=== PATIENT | female | born 1940 | race Caucasian/White ===

== ENCOUNTER 2021-06-29 06:09 | Emergency (ER) | payer OTHER ==
[~2021-06-29] VITALS: Ht 154.9 cm; Wt 64.4 kg
[~2021-06-29 06:09] MED LIST: ATENPOW10 PO; LISIPOW PO; NOVASTATIN PO; ZANTAC PO
[2021-06-29] MEDS ORDERED: SODIUM CHLORIDE 0.9% 1,000 ML IVB ONE (06:45)
[2021-06-29] MEDS ORDERED: LIDOCAINE VISCOUS 2% 15ML UD PO ONE (06:45)
[2021-06-29] MEDS ORDERED: FAMOTIDINE (10MG/ML) 2ML VL IV ONE (06:45)
[2021-06-29] MEDS ORDERED: DONNATAL 5ml ORAL Elix (BELLADONNA ALK-PHENOBARB) PO ONE (06:45)
[2021-06-29] MEDS ORDERED: ALUM & MAG HYDROX-SIMETH LIQ(MAALOX) 30 ML PO ONE (06:45)
[2021-06-29 07:03] LABS: Basophils # (auto) 0.1 10 ^3/uL (0-0.2); Basophils % (auto) 1.3 % (0.0-2.0); Eosinophils # (auto) 0.1 10 ^3/uL (0-0.8); Eosinophils % (auto) 1.5 % (0.0-7.0); Hematocrit 39.6 % (36.0-46.0); Hemoglobin 13.8 g/dL (12.2-16.2); Mean Corpuscular Hemoglobin 31.5 pg (28.0-32.0); Mean Corpuscular Hgb Conc. 34.8 g/dL (32.0-36.0); Mean Corpuscular Volume 90.3 fL (80.0-100.0); Monocytes # (auto) 0.5 10 ^3/uL (0-1.3); Monocytes % (auto) 9.3 % (0.0-12.0); Neutrophils # (auto) 2.9 10 ^3/uL (1.6-8.6); Neutrophils % (auto) 51.9 % (37.0-80.0); Red Blood Cells 4.38 10^6/uL (4.0-5.20); Red Cell Distribution Width 12.9 % (11.8-14.3); White Blood Cell 5.6 10^3/uL (4.4-10.8)
[2021-06-29 08:08] LABS: Albumin 3.5 g/dL (3.4-5.0); BUN/Creatinine Ratio 16.7; Calcium 9.5 mg/dL (8.5-10.1); Potassium 3.1 mmol/L (3.5-5.1)
[2021-06-29 08:10] LABS: Bilirubin, Total 0.8 mg/dL (0.2-1.0); Total Protein 7.4 g/dL (6.4-8.2)
[2021-06-29] MEDS ORDERED: hydrALAZINE HCL 20 MG/ML VL IV ONE (08:15)
[2021-06-29] MEDS ORDERED: FAMO-12 PO (08:57)
[2021-06-29 09:30] VITALS: BP 156/76
== END 2021-06-29 09:44 | disposition home or self-care (01) ==
LOC: EDBD 06:09 → ER 06:09
DX: R10.13 Epigastric pain (principal); I10 Essential (primary) hypertension; K21.9 Gastro-esophageal reflux disease without esophagitis
CPT/HCPCS: 36415; 71045; 80053; 83690; 84484; 85025; 93005; 96361; 96374; 96375; 99285; J0360; J3490; J7030

== ENCOUNTER 2023-10-15 13:25 | Inpatient (IN) | payer OTHER ==
[~2023-10-15] VITALS: Ht 154.9 cm; Wt 64.8 kg
[~2023-10-15 13:25] MED LIST changes: +FAMO-12 PO
[2023-10-15 14:39] LABS: Basophils # (auto) 0.1 10 ^3/uL (0-0.2); Basophils % (auto) 0.8 % (0.0-2.0); Eosinophils # (auto) 0.1 10 ^3/uL (0-0.8); Eosinophils % (auto) 1.2 % (0.0-7.0); Hematocrit 38.2 % (36.0-46.0); Lymphocytes # (auto) 2.2 10 ^3/uL (0.4-5.4); Lymphocytes % (auto) 30.6 % (10.0-50.0); Mean Corpuscular Hemoglobin 31.1 pg (28.0-32.0); Mean Corpuscular Hgb Conc. 34.1 g/dL (32.0-36.0); Mean Corpuscular Volume 91.2 fL (80.0-100.0); Monocytes # (auto) 0.6 10 ^3/uL (0-1.3); Monocytes % (auto) 8.8 % (0.0-12.0); Neutrophils # (auto) 4.2 10 ^3/uL (1.6-8.6); Neutrophils % (auto) 58.6 % (37.0-80.0); Red Blood Cells 4.19 10^6/uL (4.0-5.20); Red Cell Distribution Width 13.6 % (11.8-14.3); White Blood Cell 7.2 10^3/uL (4.4-10.8)
[2023-10-15 15:01] LABS: Alanine Aminotransferase 20 U/L (7-40); Alkaline Phosphatase 55 U/L (46-116); Anion Gap 6 (5-15); Aspartate Aminotransferase 23 U/L (13-40); Calcium 10.5 mg/dL (8.7-10.4); Carbon Dioxide 32 mmol/L (20-30); Chloride 101 mmol/L (98-107); Glucose 107 mg/dL (74-106); Sodium 139 mmol/L (136-145)
[2023-10-15 15:20] LABS: BUN/Creatinine Ratio 21.8 (10.0-20.0); Bilirubin, Total 0.5 mg/dL (0.2-1.0); Blood Urea Nitrogen 19 mg/dL (9-23)
[2023-10-15 15:21] LABS: Magnesium 1.9 mg/dL (1.6-2.6); Total Protein 7.7 g/dL (5.7-8.2)
[2023-10-15 15:58] LABS: Urine Bacteria None Seen /hpf (None Seen)
[2023-10-15 16:03] LABS: Urine Blood Negative /uL (Negative); Urine Clarity Clear (Clear); Urine Color Yellow (Yellow); Urine Protein, UAD Negative (Negative); Urine Specific Gravity 1.016 (1.001-1.035); Urine Urobilinogen Normal (Negative); Urine WBC 2 /hpf (0 - 5)
[2023-10-15] MEDS: POTASSIUM CHL 20 Meq TABLET PO ONE (18:18)
[2023-10-15] MEDS: SODIUM CHLORIDE 0.9% 1,000 ML IV ONE (18:31)
[2023-10-15] MEDS ORDERED: ONDANSETRON HCL 4 MG/2 ML VIAL IV PRN (20:45)
[2023-10-15 22:25] VITALS: PULSE 57; RESP 16; O2SAT 98
[2023-10-15] MEDS: cefTRIAXone 1GM/50ML D5W 50 ML IV ONE (22:35)
[2023-10-15] MEDS: ATORVASTATIN 20 MG TAB PO SCH (22:35)
[2023-10-15] MEDS: SODIUM CHLORIDE 0.9% 500 ML IV ONE (22:37)
[2023-10-15 23:55] VITALS: BP 153/74; PULSE 64; RESP 16; TEMP 97.5; O2SAT 95
[2023-10-16] VITALS (9 sets, daily range): BP systolic 130–175; BP diastolic 55–84; PULSE 57–76; RESP 15–20; TEMP 97.5–98; O2SAT 94–98
[2023-10-16] MEDS ORDERED: CYAN1DRO SL (00:47)
[2023-10-16] MEDS ORDERED: HYDR25TA4 PO (00:47)
[2023-10-16] MEDS ORDERED: LOVA40TA72 PO (00:47)
[2023-10-16] MEDS ORDERED: CHOL20007 OR (00:47)
[2023-10-16] MEDS ORDERED: POTA-36 PO (00:47)
[2023-10-16] MEDS ORDERED: cloNIDine HCL 0.1 MG TAB PO ONE (02:00)
[2023-10-16 05:53] LABS: Basophils # (auto) 0.1 10 ^3/uL (0-0.2); Basophils % (auto) 1.3 % (0.0-2.0); Eosinophils # (auto) 0.1 10 ^3/uL (0-0.8); Eosinophils % (auto) 1.5 % (0.0-7.0); Hematocrit 36.5 % (36.0-46.0); Hemoglobin 12.3 g/dL (12.2-16.2); Lymphocytes # (auto) 2.6 10 ^3/uL (0.4-5.4); Lymphocytes % (auto) 47.3 % (10.0-50.0); Mean Corpuscular Hemoglobin 30.9 pg (28.0-32.0); Mean Corpuscular Hgb Conc. 33.7 g/dL (32.0-36.0); Mean Corpuscular Volume 91.5 fL (80.0-100.0); Monocytes # (auto) 0.5 10 ^3/uL (0-1.3); Monocytes % (auto) 9.7 % (0.0-12.0); Neutrophils # (auto) 2.2 10 ^3/uL (1.6-8.6); Neutrophils % (auto) 40.2 % (37.0-80.0); Nucleated Red Blood Cells % 0.2 %; Red Blood Cells 3.98 10^6/uL (4.0-5.20); Red Cell Distribution Width 13.7 % (11.8-14.3); White Blood Cell 5.4 10^3/uL (4.4-10.8)
[2023-10-16 05:57] LABS: Chloride 107 mmol/L (98-107); Potassium 3.2 mmol/L (3.5-5.1); Sodium 142 mmol/L (136-145)
[2023-10-16 05:58] LABS: Anion Gap 8 (5-15); Calcium 9.5 mg/dL (8.7-10.4); Carbon Dioxide 27 mmol/L (20-30)
[2023-10-16 06:03] LABS: BUN/Creatinine Ratio 18.2 (10.0-20.0); Blood Urea Nitrogen 12 mg/dL (9-23); Glucose 88 mg/dL (74-106)
[2023-10-16] MEDS: POTASSIUM CHL 20 Meq TABLET PO ONE (10:18)
[2023-10-16] MEDS: hydrALAZINE HCL 20 MG/ML VL IV PRN (16:51)
[2023-10-16] MEDS: ACETAMINOPHEN 325 MG TAB PO PRN (17:27)
[2023-10-16] MEDS: LISINOPRIL 20 MG TAB PO ONE (21:16)
[2023-10-17 01:00] VITALS: BP 134/62; PULSE 67; RESP 18; TEMP 97.6; O2SAT 97
[2023-10-17 04:56] VITALS: BP 153/77; PULSE 60; RESP 20; TEMP 97.9; O2SAT 98
[2023-10-17 04:58] VITALS: BP_SYST 142; BP_SYST 161; BP_DIAS 101; BP_DIAS 76; PULSE 65; PULSE 76
[2023-10-17 05:58] LABS: Chloride 106 mmol/L (98-107); Potassium 3.3 mmol/L (3.5-5.1); Sodium 142 mmol/L (136-145)
[2023-10-17 05:59] LABS: Anion Gap 8 (5-15); Calcium 9.7 mg/dL (8.7-10.4); Carbon Dioxide 28 mmol/L (20-30)
[2023-10-17 06:04] LABS: Blood Urea Nitrogen 9 mg/dL (9-23); Glucose 103 mg/dL (74-106); Magnesium 1.4 mg/dL (1.6-2.6)
[2023-10-17] MEDS: LISINOPRIL 20 MG TAB PO SCH (08:37)
[2023-10-17 08:44] VITALS: BP 172/86; PULSE 76; RESP 16; TEMP 97.8; O2SAT 96
[2023-10-17] MEDS: hydroCHLOROthiazide 25 MG TAB PO ONE (10:48)
[2023-10-17 12:24] VITALS: BP 149/80; PULSE 59; RESP 16; TEMP 97.8; O2SAT 94
[2023-10-17] MEDS ORDERED: VANC125C3 PO (16:20)
== END 2023-10-17 15:21 | disposition home or self-care (01) | DRG 373 ==
LOC: EDBD 13:25 → ER 13:25 → OVERFLOW 20:36 → EAST 20:36
PROVIDERS: ADMIT Nurse Practitioner; ATTEND Internal Medicine Geriatric Medicine
DX: A04.72 Enterocolitis due to Clostridium difficile, not specified as recurrent (principal); I95.9 Hypotension, unspecified; E87.6 Hypokalemia; Z79.899 Other long term (current) drug therapy; E83.42 Hypomagnesemia; I10 Essential (primary) hypertension
CPT/HCPCS: 36415; 71045; 80048; 80053; 81001; 83605; 83735; 83880; 84484; 85025; 85048; 87177; 87493; 93005; 93306; 96365; G0378